=== PATIENT | male | born 1965 | race Caucasian/White ===

== ENCOUNTER 2017-08-10 11:23 | Emergency (ER) | payer OTHER ==
[2017-08-10] MEDS ORDERED: Sodium Chloride 0.9% 1,000 ML IV ONE (12:13)
[2017-08-10] MEDS ORDERED: Aspirin 81 MG Tab.Chew PO ONE (12:30)
[2017-08-10 12:31] VITALS: BP 175/103
--- NOTE | 2017-08-10 12:50 | EDM.PDOC ---
ED HPI GENERAL MEDICAL PROBLEM - General Chief Complaint: General Stated Complaint: left sided weakness Time Seen by Provider: 08/10/17 12:20 History Limitations: Reports: No Limitations - History of Present Illness INITIAL COMMENTS - FREE TEXT/NARRATIVE: Pt. has been experiencing intermittent L sided weakness and headache since 10: 30 on Monday AM. Pt. states that on Monday morning, he also had aphasia and severe diaphoresis, as well as near complete paralysis of the L leg. Symptoms resolved after approx. 30 min. He has had a headache since the event, worse than headaches that he normally would experience. He states that today, he developed L upper and lower extremity weakness, starting first in the leg. He was not diaphoretic and had no issues with speech or other abnormal neuro symptoms. The symptoms today started at 0630 this AM, approx. 30 min after arriving at work. Onset: Today Onset Date: 08/10/17 Onset Time: 06:30 Location: Reports: Upper Extremity, Left, Lower Extremity, Left Severity: Mild Improves with: Reports: None Worsens with: Reports: None Associated Symptoms: Reports: Headaches - Related Data Allergies Allergy/AdvReac Type Severity Reaction Status Date / Time No Known Allergies Allergy Verified 08/10/17 12:00 Home Meds: Home Meds Insulin Detemir [Levemir Flextouch] 45 units SQ BID 11/03/16 [History] Insulin Lispro [HumaLOG] 5 units SQ DAILY@1800 11/03/16 [History] Liraglutide [Victoza] 1.8 mg SQ DAILY 11/03/16 [History] Lisinopril/Hydrochlorothiazide [Lisinopril-Hctz 20-12.5 mg Tab] 1 tab PO DAILY 11/03/16 [History] Metoprolol Tartrate 100 mg PO BID 11/03/16 [History] Multivitamin [Multivitamins] 1 cap PO DAILY 11/03/16 [History] Omeprazole Magnesium [Prilosec Otc] 20 mg PO DAILY 11/03/16 [History] Simvastatin [Zocor] 40 mg PO BEDTIME 11/03/16 [History] Aspirin 162.5 mg PO DAILY 08/10/17 [History] Canagliflozin/Metformin HCl [Invokamet 50-1,000 mg Tablet] 1 tab PO BIDMEALS [History] Cyclobenzaprine [Flexeril] 10 mg PO TID PRN 08/10/17 [History] Past Medical History Cardiovascular History: Reports: Angina, CAD, Hypertension Gastrointestinal History: Reports: Colon Polyp Other Gastrointestinal History: heartburn Musculoskeletal History: Reports: Other (See Below) Other Musculoskeletal History: muscle cramps Endocrine/Metabolic History: Reports: Diabetes, Type II - Past Surgical History Cardiovascular Surgical History: Reports: Carotid Stents Male Surgical History: Reports: Other (See Below) Social & Family History - Tobacco Use Smoking Status *Q: Never Smoker Years of Tobacco use: 34 Second Hand Smoke Exposure: Yes - Alcohol Use Days Per Week of Alcohol Use: 0 - Recreational Drug Use Recreational Drug Use: No ED ROS GENERAL - Review of Systems Review Of Systems: See Below Constitutional: Reports: No Symptoms HEENT: Reports: No Symptoms Respiratory: Reports: No Symptoms Cardiovascular: Reports: No Symptoms Endocrine: Reports: No Symptoms GI/Abdominal: Reports: No Symptoms : Reports: No Symptoms Musculoskeletal: Reports: No Symptoms Skin: Reports: No Symptoms Neurological: Reports: Headache, Trouble Speaking, Gait Disturbance, Other ( Please see HPI) Psychiatric: Reports: No Symptoms Hematologic/Lymphatic: Reports: No Symptoms Immunologic: Reports: No Symptoms ED EXAM, NEURO - Physical Exam Exam: See Below Exam Limited By: No Limitations General Appearance: Alert, No Apparent Distress Eye Exam: Bilateral Eye: EOMI, Normal Fundi, Normal Inspection, PERRL Ears: Normal External Exam, Normal Canal, Hearing Grossly Normal Nose: Normal Inspection, Normal Mucosa, No Blood Throat/Mouth: Normal Inspection, Normal Lips, Normal Teeth, Normal Voice, No Airway Compromise Head Exam: Atraumatic, Normocephalic Neck: Normal Inspection, Supple, Non-Tender, Full Range of Motion Respiratory/Chest: No Respiratory Distress, Lungs Clear, Normal Breath Sounds Cardiovascular: Normal Peripheral Pulses, Regular Rate, Rhythm GI/Abdominal: Normal Bowel Sounds, Soft, Non-Tender, No Organomegaly (Male) Exam: No Hernia, Deferred Rectal (Males) Exam: Deferred Neurological: Alert, Normal Mood/Affect, Normal Dorsiflexion, CN II-XII Intact, Normal Plantar Flexion, Normal Gait, Normal Reflexes, No Motor/Sensory Deficits , Oriented x 3, Abnormal Motor (mild weakness (4/5) in left upper and lower extremity, vs. 5/5 on the right. NIH stroke scale was normal with score of 0, however.) Back Exam: Normal Inspection, Full Range of Motion Extremities: Normal Inspection, Normal Range of Motion, Non-Tender, Normal Capillary Refill Skin Exam: Warm, Dry EKG INTERPRETATION EKG Date: 08/10/17 Rhythm: NSR [place]: Normal P-Wave: Present QRS: Normal ST-T: Normal QT: Normal Course - Vital Signs Last Recorded V/S: Last Vital Signs Temp 36.7 C 08/10/17 12:20 Pulse 71 08/10/17 12:20 Resp 16 08/10/17 12:20 BP 175/103 H 08/10/17 12:20 Pulse Ox 96 08/10/17 12:20 - Orders/Labs/Meds Orders: Active Orders 24 hr Category Date Time Status EKG 12 Lead [EKG Documentation Completion] [] STAT Care 08/10/17 11:58 Ordered Labs: Laboratory Tests 08/10/17 Range/Units 11:52 PT 10.4 (9.8-11.8) SEC INR 1.0 L (2.0-3.5) APTT 25.0 (22.0-34.0) SEC Meds: Medications Discontinued Medications Generic Name Dose Route Start Last Admin Trade Name Freq PRN Reason Stop Dose Admin Aspirin 324 mg 08/10/17 12:30 08/10/17 12:31 Aspirin PO 08/10/17 12:31 324 mg ONETIME ONE Administration - Radiology Interpretation Free Text/Narrative:: CT brain without contrast was negative Departure - Departure Time of Disposition: 12:59 Disposition: DC/Tfer to Acute Hospital 02 Clinical Impression: TIA (transient ischemic attack), Left-sided weakness - Discharge Information Instructions: Transient Ischemic Attack Referrals: PCP,Unknown [Primary Care Provider] - Forms: Interfacility Transfer EMTALA, ED Department Discharge - My Orders Last 24 Hours: My Active Orders 08/10/17 11:58 EKG 12 Lead [EKG Documentation Completion] [RC] STAT - Assessment/Plan Last 24 Hours: My Active Orders 08/10/17 11:58 EKG 12 Lead [EKG Documentation Completion] [RC] STAT Assessment:: TIA Plan: Spoke with Dr. Rivas at [facility] in [place]. Pt. will need MRA and carotid US. Does not meet criteria for TPA as symptoms are almost completely normal. Spoke with Dr. Egan at [facility] in [place] ER who accepts the pt. in transfer. Will be transferred via [facility] ground ambulance.
== END 2017-08-10 12:56 | disposition short-term general hospital (02) ==
LOC: VM.ED 11:23
DX: G45.9 Transient cerebral ischemic attack, unspecified (principal); I10 Essential (primary) hypertension; E11.9 Type 2 diabetes mellitus without complications; I25.10 Atherosclerotic heart disease of native coronary artery without angina pectoris; Z79.4 Long term (current) use of insulin; Z79.82 Long term (current) use of aspirin; Z79.899 Other long term (current) drug therapy
CPT/HCPCS: 85610; 85730; 93005; 96360; 99285; A9270; J7030

== ENCOUNTER 2020-10-14 11:02 | Observation (INO) | payer BC, MEDICAID ==
--- NOTE | 2020-10-14 11:55 | EDM.PDOC ---
ED HPI GENERAL MEDICAL PROBLEM - General Chief Complaint: Chest Pain Stated Complaint: PRESSURE IN CHEST Time Seen by Provider: 10/14/20 11:15 Source of Information: Reports: Patient, RN, RN Notes Reviewed History Limitations: Reports: No Limitations - History of Present Illness INITIAL COMMENTS - FREE TEXT/NARRATIVE: Patient presents to ER with complaint of sternal chest pressure that began about 08 100 today. States at that time he rated it a 2-3/10, now the pain is a 1/10, states it is an aching sternal pain. Patient states he did have tingling down the left arm as well as slight shortness of breath at that time patient denies any tingling of the left arm and shortness of breath at this time. Patient denies any radiation of the pain into the neck or jaw, and states he does have chronic back pain but no new an acute pain in the back. Denied diaphoresis, nausea, vomiting, diarrhea, fever, chills. Patient states he has had a dry cough lately. 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 He has been negative, last tested yesterday. Patient states he is unsure if he has had an TN in the past, but did have stents placed to the right coronary artery in 2004. Patient also states he had a TIA approximately 5 years ago. Patient states father and brother both of sudden cardiac at the age of 42. Patient admits to being diabetic, on insulin as well as oral agents. Reports he quit smoking 6 years ago, no alcohol use in the last 5 years, and no drug use. Onset: Today, Sudden Middle Chest Pain Score (Numeric/FACES): 2 - Related Data Allergies Allergy/AdvReac Type Severity Reaction Status Date / Time No Known Allergies Allergy Verified 10/14/20 11:27 Home Meds: Home Meds Metoprolol Tartrate 100 mg PO BID 11/03/16 [History] Multivitamin [Multivitamins] 1 cap PO DAILY 11/03/16 [History] Omeprazole Magnesium [Prilosec Otc] 20 mg PO DAILY 11/03/16 [History] Aspirin 325 mg PO DAILY 08/10/17 [History] Acetaminophen [Non-Aspirin Extra Strength] 1,000 mg PO ASDIRECTED PRN 10/09/18 [ History] Non-Formulary Medication [NF Drug] 0.25 mg SUBCUT Q7D 10/09/18 [History] Nystatin [Nystatin Crm] 1 gm TOP BID 10/09/18 [History] Canagliflozin/Metformin HCl [Invokamet 50-1,000 mg Tablet] 1 each PO BID 10/14/20 [History] Cyclobenzaprine [Flexeril] 10 mg PO TID PRN 10/14/20 [History] Furosemide [Lasix] 40 mg PO BID 10/14/20 [History] Insulin Regular, Human [Humulin R U-500 Kwikpen] 90 unit SQ BID 10/14/20 [History] Meloxicam [Mobic] 15 mg PO DAILY 10/14/20 [History] amLODIPine Besylate [Norvasc] 2.5 mg PO DAILY 10/14/20 [History] atorvaSTATin [Lipitor] 80 mg PO BEDTIME 10/14/20 [History] Past Medical History Cardiovascular History: Reports: CAD, High Cholesterol, Hypertension, Stents Other Cardiovascular History: coronary angioplasty Gastrointestinal History: Reports: Colon Polyp Other Gastrointestinal History: heartburn Other Genitourinary History: epididymitis (left). hydrocele (left) Musculoskeletal History: Reports: Back Pain, Chronic, Neck Pain, Chronic, Osteoarthritis Other Musculoskeletal History: shoulder surgery Neurological History: Reports: CVA, Neuropathy, Diabetic Other Neuro History: gait disturbance-post stroke. numbness. left sided weakness. acute post-traumatic headache, intractable Endocrine/Metabolic History: Reports: Diabetes, Type II, Obesity/BMI 30+ - Past Surgical History Other HEENT Surgeries/Procedures: presbyopia Cardiovascular Surgical History: Reports: Carotid Endarterectomy, Carotid Stents GI Surgical History: Reports: Appendectomy, Colon, Colonoscopy, Hernia, Inguinal Other GI Surgeries/Procedures: hemorrhoid surgery Male Surgical History: Reports: Other (See Below) Other Male Surgeries/Procedures: hydrocele repair Musculoskeletal Surgical History: Reports: Arthroscopic Procedure Social & Family History - Tobacco Use Tobacco Use Status *Q: Never Tobacco User - Recreational Drug Use Recreational Drug Use: No ED ROS GENERAL - Review of Systems Review Of Systems: Comprehensive ROS is negative, except as noted in HPI. ED EXAM, GENERAL - Physical Exam Exam: See Below Exam Limited By: No Limitations General Appearance: Alert, WD/WN, No Apparent Distress Eye Exam: Bilateral Eye: EOMI, Normal Inspection Ears: Normal External Exam, Hearing Grossly Normal Nose: Normal Inspection Throat/Mouth: Normal Inspection, Normal Voice, No Airway Compromise Head: Atraumatic, Normocephalic Neck: Normal Inspection, Supple, Non-Tender, Full Range of Motion Respiratory/Chest: No Respiratory Distress, Lungs Clear, Normal Breath Sounds, No Accessory Muscle Use, Chest Non-Tender Cardiovascular: Normal Peripheral Pulses, Regular Rate, Rhythm, No Edema, No Gallop, No JVD, No Murmur, No Rub Peripheral Pulses: 2+: Radial (L), Radial (R) GI/Abdominal: Normal Bowel Sounds, Soft, Non-Tender (Male) Exam: Deferred Rectal (Males) Exam: Deferred Back Exam: Normal Inspection, Full Range of Motion, NT Extremities: Normal Inspection, Normal Range of Motion, Non-Tender, Normal Capillary Refill, No Pedal Edema Neurological: Alert, Oriented, CN II-XII Intact, Normal Cognition, Normal Gait, Normal Reflexes, No Motor/Sensory Deficits Psychiatric: Normal Affect, Normal Mood Skin Exam: Warm, Dry, Intact, Normal Color, No Rash Lymphatic: No Adenopathy Course - Vital Signs Last Recorded V/S: Last Vital Signs Temp 97.7 F 10/14/20 14:32 Pulse 76 10/14/20 14:32 Resp 16 10/14/20 14:32 BP 166/73 H 10/14/20 14:32 Pulse Ox 97 10/14/20 14:32 - Orders/Labs/Meds Orders: Active Orders 24 hr Category Date Time Status EKG Documentation Completion [RC] STAT Care 10/14/20 11:15 Active EKG Documentation Completion [RC] STAT Care 10/14/20 15:25 Active Labs: Laboratory Tests 10/14/20 10/14/20 10/14/20 Range/Units 11:25 11:25 11:25 WBC 7.8 (4.0-10.0) x10^3/uL RBC 4.85 (4.5-6.0) x10^6/uL Hgb 14.4 (14.0-18.0) g/dL Hct 43.8 (40.0-52.0) % MCV 90.3 D (78.0-93.0) fL MCH 29.7 (26.0-32.0) pg MCHC 32.9 (32.0-36.0) g/dL RDW Coeff of [place] 12.8 (10.0-15.0) % Plt Count 218 (130-400) x10^3/uL Neut % (Auto) 52.8 (50.0-80.0) % Lymph % (Auto) 35.5 (25.0-50.0) % [place] % (Auto) 9.0 (2.0-11.0) % Eos % (Auto) 2.3 (0.0-4.0) % Baso % (Auto) 0.4 (0.2-1.2) % PT 10.4 (9.5-12.3) SEC INR 1.0 L (2.0-3.5) Sodium 138 (136-145) mmol/L Potassium 4.5 (3.5-5.1) mmol/L Chloride 101 (98-107) mmol/L Carbon Dioxide 26 (21-32) mmol/L Anion Gap 15.5 (10-20) mmol/L BUN 22 H (7-18) mg/dL Creatinine 1.0 (0.70-1.30) mg/dL Est Cr Clr Drug Dosing TNP Estimated GFR (MDRD) > 60 Glucose 190 H (74-106) mg/dL Calcium 9.3 (8.5-10.1) mg/dL Corrected Calcium 8.98 (8.5-10.1) mg/dL Total Bilirubin 0.5 (0.2-1.0) mg/dL AST 45 H (15-37) U/L ALT 79 H (16-63) U/L Alkaline Phosphatase 89 (46-116) U/L Troponin I < 0.017 (<=0.056) ng/mL NT-Pro-B Natriuret Pep 65 (<=125) pg/mL Total Protein 7.9 (6.4-8.2) g/dL Albumin 4.4 (3.4-5.0) g/dL Globulin 3.5 Albumin/Globulin Ratio 1.26 SARS CoV-2 RNA Rapid GLORIA (NEGATIVE) 10/14/20 Range/Units 13:45 WBC (4.0-10.0) x10^3/uL RBC (4.5-6.0) x10^6/uL Hgb (14.0-18.0) g/dL Hct (40.0-52.0) % MCV (78.0-93.0) fL MCH (26.0-32.0) pg MCHC (32.0-36.0) g/dL RDW Coeff of [place] (10.0-15.0) % Plt Count (130-400) x10^3/uL Neut % (Auto) (50.0-80.0) % Lymph % (Auto) (25.0-50.0) % [place] % (Auto) (2.0-11.0) % Eos % (Auto) (0.0-4.0) % Baso % (Auto) (0.2-1.2) % PT (9.5-12.3) SEC INR (2.0-3.5) Sodium (136-145) mmol/L Potassium (3.5-5.1) mmol/L Chloride (98-107) mmol/L Carbon Dioxide (21-32) mmol/L Anion Gap (10-20) mmol/L BUN (7-18) mg/dL Creatinine (0.70-1.30) mg/dL Est Cr Clr Drug Dosing Estimated GFR (MDRD) Glucose (74-106) mg/dL Calcium (8.5-10.1) mg/dL Corrected Calcium (8.5-10.1) mg/dL Total Bilirubin (0.2-1.0) mg/dL AST (15-37) U/L ALT (16-63) U/L Alkaline Phosphatase (46-116) U/L Troponin I (<=0.056) ng/mL NT-Pro-B Natriuret Pep (<=125) pg/mL Total Protein (6.4-8.2) g/dL Albumin (3.4-5.0) g/dL Globulin Albumin/Globulin Ratio SARS CoV-2 RNA Rapid GLORIA Negative (NEGATIVE) Meds: Medications Discontinued Medications Generic Name Dose Route Start Last Admin Trade Name Freq PRN Reason Stop Dose Admin Aspirin 324 mg 10/14/20 13:32 10/14/20 11:10 Aspirin PO 10/14/20 13:33 324 mg ONETIME ONE Administration - Radiology Interpretation Free Text/Narrative:: Chest xray: No acute process See rad report - Re-Assessments/Exams Free Text/Narrative Re-Assessment/Exam: 10/14/20 13:09 Discussed patient case with Dr. Guillaume who agrees, there is a new RBBB on the EKG when compared to 2017 EKG. He states patient can be monitored and EKG and troponin rechecked. If changes in pain level, EKG, or labs, patient to be transferred to [facility] in [place]. Tomorrow patient will need a referral to see Cardiology at [facility] in [place]. Patient denying any pain at this time, is comfortable in his room. Lunch tray ordered for him. 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 Diabetes mellitus complication status: without complication Qualified Code(s): E11.9 - Type 2 diabetes mellitus without complications; Z79.4 - exterminator termite (current) use of insulin Sepsis Event Note (ED) - Evaluation Sepsis Screening Result: No Definite Risk - Focused Exam Vital Signs: Vital Signs Temp Pulse Resp BP Pulse Ox 10/14/20 13:35 98.1 F 78 14 147/75 H 97 10/14/20 12:19 77 12 148/72 H 98 10/14/20 11:02 98.4 F 75 18 150/71 H 97 - My Orders Last 24 Hours: My Active Orders 10/14/20 11:15 EKG Documentation Completion [RC] STAT 10/14/20 15:25 EKG Documentation Completion [RC] STAT - Assessment/Plan Admission H&P: Please use this note as an admission H&P Last 24 Hours: My Active Orders 10/14/20 11:15 EKG Documentation Completion [RC] STAT 10/14/20 15:25 EKG Documentation Completion [RC] STAT
--- NOTE | 2020-10-14 11:56 | CR ---
[id number] RAD/RAD Chest PA or AP 1V EXAM: SINGLE VIEW CHEST. INDICATION: CHEST PAIN COMPARISON: NO PREVIOUS SIMILAR EXAM IS AVAILABLE FINDINGS: The lungs are clear The cardiomediastinal contour is mildly prominent IMPRESSION: NO ACUTE PROCESS Jesus Abebe MD 10/14/20 0304 Thank you for allowing us to participate in the care of your patient.
[2020-10-14 12:01] LABS: CHLORIDE,CL 101 mmol/L (98-107); SODIUM,NA 138 mmol/L (136-145)
[2020-10-14 12:02] LABS: ANION GAP 15.5 mmol/L (10-20)
[2020-10-14] MEDS ORDERED: Aspirin 81 MG Tab.Chew PO ONE (13:32)
[2020-10-14] MEDS ORDERED: Acetaminophen 500 MG Tab PO PRN (16:02)
[2020-10-14] MEDS ORDERED: Non-Formulary Medication 1 Each SUBCUT SCH (16:15)
[2020-10-14] MEDS: Acetaminophen 500 MG Tab PO PRN (17:24)
[2020-10-14] MEDS: Furosemide 40 MG Tab PO SCH (17:24)
[2020-10-14] MEDS ORDERED: atorvaSTATin 40 MG Tab PO SCH (20:00)
[2020-10-14] MEDS: Metoprolol Tartrate 50 MG Tab PO SCH (20:20)
[2020-10-14] MEDS: Nystatin Crm 30 GM Tube TOP SCH (20:21)
[2020-10-15 05:08] VITALS: BP 145/76; PULSE 68
[2020-10-15] MEDS ORDERED: Omeprazole 20 MG Cap.CR PO SCH (07:00)
[2020-10-15] MEDS: Metoprolol Tartrate 50 MG Tab PO SCH (07:48)
[2020-10-15] MEDS: Furosemide 40 MG Tab PO SCH (07:50)
[2020-10-15] MEDS: Nystatin Crm 30 GM Tube TOP SCH (07:50)
[2020-10-15] MEDS: Acetaminophen 500 MG Tab PO PRN (07:50)
[2020-10-15] MEDS ORDERED: amLODIPine 2.5 MG Tab PO SCH (08:00)
[2020-10-15] MEDS ORDERED: METFORMIN HCL PO SCH (08:00)
[2020-10-15] MEDS ORDERED: CANAGLIFLOZIN PO SCH (08:00)
[2020-10-15] MEDS ORDERED: Aspirin 325 MG Tab.EC PO SCH (08:00)
[2020-10-15] MEDS ORDERED: Multivitamins with Iron/Calcium/Folic Acid/Minerals Tab PO SCH (08:00)
[2020-10-15] MEDS ORDERED: Meloxicam 7.5 MG Tab PO SCH (08:00)
[2020-10-15] MEDS ORDERED: Insulin Regular, Human 100 Units/ML 3 ML Vial SUBCUT SCH (08:30)
[2020-10-15] MEDS ORDERED: Nitroglycerin 0.4 MG Tab.SL SL PRN (08:32)
--- NOTE | 2020-10-15 22:33 | DISCH ---
PRIMARY DISCHARGE DIAGNOSES: 1. Prolonged episode of chest pain with concern for angina, known underlying coronary artery disease, ruled out for acute myocardial infarction with negative troponins x4. 2. Coronary artery disease with stenting back in 2004 to the RCA due to a non- ST-elevation myocardial infarction. 3. History of stroke back in 2017, no residual symptoms. 4. Chronic low back pain. 5. Type 2 diabetes, previously uncontrolled with complications, but now under improved control. His latest A1c was 6.9 in August. 6. Essential hypertension. 7. Hyperlipidemia. 8. History of colon polyps. 9. Diabetic neuropathy and proliferative retinopathy and nephropathy. 10.Obesity. 11.Osteoarthritis of the cervical spine. 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 He has been doing increasing work due to being short- staffed in the COVID-19 pandemic. He began getting substernal chest pain into the left arm, rated it as a pressure, mild, like 2 to 3 out of 10. The pain did not go way. He called the clinic. Given his complex cardiac history, he was advised to go to the ER. He did not have any shortness of breath, diarrhea, nausea, vomiting, lightheadedness, coughing, fever, chills. He had a negative COVID test. The patient did quit smoking about 5 years ago. His father and brother both of sudden cardiac at a young age in their 40s. The patient's EKG did show a right bundle-branch block which was new. His case was discussed with Cardiology in [place], who did recommend admission for observation. The patient's blood pressure remained in the 140s to 150s systolic. His heart rate is in the 57 to 68 range. He had his home medications continued during his stay for hypertension, and he was pain-free by about 9 p.m. that evening. He did not receive any nitroglycerin, but did receive regular aspirin. He said he has been having some headaches, so he would try to avoid nitroglycerin. After his troponins were negative and he was observed overnight, the patient was discharged home with plans for followup with Cardiology, which likely will include an angiogram. The patient will otherwise follow up with me in the clinic in 2 weeks' time. He is not due for any lab work. He was given a note to be out of work and avoid strenuous activity until 10/19. He was given a prescription for nitroglycerin. Otherwise, no medication adjustments were made. If he has chest pain that is severe over 30 minutes and does not go away with rest or nitroglycerin, he needs to seek medical care. Discharge exam: Vitals reviewed General: No acute distress Heart: Regular no murmurs Lungs: Clear Abdomen: positive bowel sounds soft and nontender Extremities no edema Psych: no anxiety or depression MKA: 10/15/2020 21:54:32 MODL: 10/15/2020 22:25:42 /[id number] MTDD
== END 2020-10-15 09:05 | disposition home or self-care (01) ==
LOC: VM.ED 11:02 → VM.MS 13:50
PROVIDERS: ADMIT Nurse Practitioner Family; ATTEND Nurse Practitioner Family
DX: R07.89 Other chest pain (principal); I25.10 Atherosclerotic heart disease of native coronary artery without angina pectoris; E78.00 Pure hypercholesterolemia, unspecified; I10 Essential (primary) hypertension; E11.40 Type 2 diabetes mellitus with diabetic neuropathy, unspecified; E66.9 Obesity, unspecified; E11.21 Type 2 diabetes mellitus with diabetic nephropathy; E11.319 Type 2 diabetes mellitus with unspecified diabetic retinopathy without macular edema; G89.29 Other chronic pain; M54.5 Low back pain; Z20.828 Contact with and (suspected) exposure to other viral communicable diseases; Z79.899 Other long term (current) drug therapy; Z79.82 Long term (current) use of aspirin; Z79.4 Long term (current) use of insulin; Z95.5 Presence of coronary angioplasty implant and graft; Z86.73 Personal history of transient ischemic attack (TIA), and cerebral infarction without residual deficits; Z98.890 Other specified postprocedural states; Z86.010 Personal history of colon polyps; Z68.38 Body mass index [BMI] 38.0-38.9, adult
CPT/HCPCS: 36415; 71045; 80053; 82962; 83880; 84484; 85025; 85610; 87635; 93005; 99285; A9270; G0378; 99220; U0002